=== PATIENT | female | born 1955 | race Caucasian/White ===

== ENCOUNTER 2018-02-12 21:13 | Emergency (ER) | payer BC ==
[2018-02-12 23:58] LABS: ABS Basophils 0.1 10^3/ul (0-0.2); ABS Eosinophils 0.1 10^3/ul (0-0.6); ABS Lymphocytes 2.3 10^3/ul (1.0-4.8); ABS Monocytes 0.6 10^3/ul (0-0.8); ABS Neutrophils 4.3 10^3/ul (1.5-7.7); ABS Nucleated RBC 0 10^3/ul; Eosinophil % 1.6 % (0-6); Hematocrit 39 % (35-47); Hemoglobin 13.3 g/dl (12.0-16.0); Mean Corpuscular HGB Conc 34 g/dl (31-36); Mean Corpuscular Hemoglobin 30 pg (27-31); Mean Corpuscular Volume 88 fL (80-97); Mean Platelet Volume 7.9 um3 (7.4-10.4); Nucleated Red Blood Cells % 0.1; Platelet Count 384 10^3/ul (150-450); Red Blood Count 4.36 10^6/ul (4.00-5.40); Red Cell Distribution Width 13 % (10.5-15); White Blood Count 7.5 10^3/ul (3.5-10.8)
[2018-02-13 00:19] LABS: EGFR Non-African American 83.4 (>60)
[2018-02-13] MEDS ORDERED: NS 0.9% 1000 ML* 1,000 ML IV ONE (01:38)
--- NOTE | 2018-02-13 01:42 | ED ---
Neck Pain - HPI Summary HPI Summary: This pt is a 62 y/o female presenting to [facility] c/o lump on her neck for the past 1.5 weeks. She states she noticed this lump about 1.5 weeks ago and went to Urgent Care. She was prescribed Augmentin on 02/06/18 and is still taking it. Pt did not get any imaging done. Pt reports her voice has been changing as well as an episode last night when she was coughing and felt restriction and SOB. She denies any pain on neck. Pt denies lump has changed in size since she noticed it. Denies fever, appetite change, difficulty swallowing. No PMHx. - History of Current Complaint Chief Complaint: EDNeckComplaint Stated Complaint: DIFFICULTY BREATHING Time Seen by Provider: 02/13/18 01:18 Hx Obtained From: Patient Onset/Duration Of Injury/Symptoms: Weeks - 1.5 Mechanism Of Injury: No Known Trauma Timing: Lasting Weeks - 1.5 Onset/Duration: Started weeks ago - 1.5 Severity Currently: Mild Pain Intensity: 1 Pain Scale Used: 0-10 Numeric Aggravating Factors: Nothing Alleviating Factors: Nothing Associated Signs & Symptoms: Negative: Swelling, Redness, Bruising, Fever, Nuchal Rigity, Weakness, Headache, Paresthesia - Allergies/Home Medications Allergies/Adverse Reactions: Allergies Allergy/AdvReac Type Severity Reaction Status Date / Time Sulfa (Sulfonamide AdvReac Headache Verified 02/12/18 21:22 Antibiotics) PMH/Surg Hx/FS Hx/Imm Hx Endocrine/Hematology History: Denies: Hx Diabetes Cardiovascular History: Denies: Hx Hypertension Infectious Disease History: No Infectious Disease History: Denies: Traveled Outside the [place] in Last 30 Days - Family History Family History: FHx thyroid issues - Social History Alcohol Use: None Substance Use Type: Reports: None Smoking Status (MU): Never Smoked Tobacco Review of Systems Negative: Fever, Chills, Other - appetite change ENT: Other - voice changing, neck lump Negative: Other - difficulty swallowing Positive: Shortness Of Breath, Cough Skin: Negative Neurological: Negative All Other Systems Reviewed And Are Negative: Yes Physical Exam - Summary Physical Exam Summary: VITAL SIGNS: Reviewed. GENERAL: Patient is a well-developed and nourished female who is lying comfortable in the stretcher. Patient is not in any acute respiratory distress. HEAD AND FACE: No signs of trauma. No ecchymosis, hematomas or skull depressions. No sinus tenderness. EYES: PERRLA, EOMI x 2, No injected conjunctiva, no nystagmus. EARS: Hearing grossly intact. Ear canals and tympanic membranes are within normal limits. MOUTH: Oropharynx within normal limits. NECK: Supple, trachea is midline, no adenopathy, no JVD, no carotid bruit, no c- spine tenderness, neck with full ROM. 3.5 x 2.5 cm firm mass over the right side of the neck mostly likely in her thyroid gland, which moved with swallowing. It is non tender and not warm. CHEST: Symmetric, no tenderness at palpation LUNGS: Clear to auscultation bilaterally. No wheezing or crackles. CVS: Regular rate and rhythm, S1 and S2 present, no murmurs or gallops appreciated. ABDOMEN: Soft, non-tender. No signs of distention. No rebound no guarding, and no masses palpated. Bowel sounds are normal. EXTREMITIES: FROM in all major joints, no edema, no cyanosis or clubbing. NEURO: Alert and oriented x 3. No acute neurological deficits. Speech is normal and follows commands. SKIN: Dry and warm Triage Information Reviewed: Yes Vital Signs On Initial Exam: Initial Vitals Temp Pulse Resp BP Pulse Ox 98.3 F 73 16 133/66 100 02/12/18 21:15 02/12/18 21:15 02/12/18 21:15 02/12/18 21:15 02/12/18 21:15 Vital Signs Reviewed: Yes Diagnostics - Vital Signs Vital Signs Temp Pulse Resp BP Pulse Ox 02/12/18 23:35 98.3 F 66 16 120/65 100 02/12/18 21:15 98.3 F 73 16 133/66 100 - Laboratory Lab Results: Lab Results 02/12/18 02/12/18 Range/Units 23:51 23:51 WBC 7.5 (3.5-10.8) 10^3/ul RBC 4.36 (4.00-5.40) 10^6/ul Hgb 13.3 (12.0-16.0) g/dl Hct 39 (35-47) % MCV 88 (80-97) fL MCH 30 (27-31) pg MCHC 34 (31-36) g/dl RDW 13 (10.5-15) % Plt Count 384 (150-450) 10^3/ul MPV 7.9 (7.4-10.4) um3 Neut % (Auto) 57.7 (38-83) % Lymph % (Auto) 31.0 (25-47) % [place] % (Auto) 8.5 H (0-7) % Eos % (Auto) 1.6 (0-6) % Baso % (Auto) 1.2 (0-2) % Absolute Neuts (auto) 4.3 (1.5-7.7) 10^3/ul Absolute Lymphs (auto) 2.3 (1.0-4.8) 10^3/ul Absolute Monos (auto) 0.6 (0-0.8) 10^3/ul Absolute Eos (auto) 0.1 (0-0.6) 10^3/ul Absolute Basos (auto) 0.1 (0-0.2) 10^3/ul Absolute Nucleated RBC 0 10^3/ul Nucleated RBC % 0.1 Sodium 140 (135-145) mmol/L Potassium 4.4 (3.5-5.0) mmol/L Chloride 102 (101-111) mmol/L Carbon Dioxide 32 (22-32) mmol/L Anion Gap 6 (2-11) mmol/L BUN 11 (6-24) mg/dL Creatinine 0.71 (0.51-0.95) mg/dL Est GFR ( Amer) 100.9 (>60) Est GFR (Non-Af Amer) 83.4 (>60) BUN/Creatinine Ratio 15.5 (8-20) Glucose 116 H (70-100) mg/dL Calcium 9.7 (8.6-10.3) mg/dL Total Bilirubin 0.60 (0.2-1.0) mg/dL AST 19 (13-39) U/L ALT 13 (7-52) U/L Alkaline Phosphatase 83 (34-104) U/L C-Reactive Protein 3.59 (<8.01) mg/L Total Protein 7.6 (6.4-8.9) g/dL Albumin 4.3 (3.2-5.2) g/dL Globulin 3.3 (2-4) g/dL Albumin/Globulin Ratio 1.3 (1-3) Result Diagrams: 02/12/18 23:51 02/12/18 23:51 Lab Statement: Any lab studies that have been ordered have been reviewed, and results considered in the medical decision making process. - CT Neck CT CT Interpretation: Positive (See Comments) - IMPRESSION: Right thyroid mass with partially calcified nodule causing deviation of the trachea to the left of midline. Small left thyroid lesions. Reversal of the normal lordotic curvature of the cervical spine may be positional in nature or due to muscle spasm. Clinical correlation is advised. Dr. Sams has reviewed this report. CT Interpretation Completed By: Radiologist Re-Evaluation - Re-Evaluation First Eval Re-Evaluation Time: 04:15 Comment: Reviewed the lab and CT results with the pt and . She will be discharged home with follow up from Dr. Herrera. Neck Course/Dx - Course Assessment/Plan: Pt is a 62 y/o female, currently on Augmentin for 7 days now, who presents with lump on her neck for the past 1.5 weeks. Pt reports her voice has been changing as well as an episode last night when she was coughing and felt restriction and SOB. She denies any pain on neck. Pt denies lump has changed in size since she noticed it. Test results show TSH of 7.78. Neck CT shows right thyroid mass with partially calcified nodule causing deviation of the trachea to the left of midline. Small left thyroid lesions. Reversal of the normal lordotic curvature of the cervical spine may be positional in nature or due to muscle spasm. I discussed the cat scan and blood work with the pt and . Pt will be given a referral to Dr. Herrera, surgeon. She is advised to stop her antibiotics. Pt is also instructed to return to the ED for any worsening or new symptoms. - Diagnoses Provider Diagnoses: Thyroid mass Discharge - Sign-Out/Discharge Documenting (check all that apply): Patient Departure - Discharge - Discharge Plan Condition: Stable Disposition: HOME Referrals: Justine Herrera MD [Medical Doctor] - Additional Instructions: Please follow up with Dr. Herrrea, surgeon, in 1-2 days. RETURN TO EMERGENCY DEPARTMENT FOR ANY NEW OR WORSENING SYMPTOMS. - Attestation Statements Document Initiated by Scribe: Yes Documenting Scribe: Justa Felix Provider For Whom Scribe is Documenting (Include Credential): Dr. Thierry Sams MD Scribe Attestation: Justa Lo, scribed for Dr. Thierry Sams MD on 02/13/18 at [id number].
[2018-02-13] MEDS ORDERED: Iohexol 300* (CONTRAST) 10 ML SDV IV ONE (01:46)
--- NOTE | 2018-02-13 03:35 | RAD ---
EXAM: CT Neck With Intravenous Contrast CLINICAL HISTORY: 62 years old, female; Signs and symptoms; Mass, lump, or swelling in neck TECHNIQUE: Axial computed tomography images of the neck with intravenous contrast. All CT scans at this facility use at least one of these dose optimization techniques: automated exposure control; mA and/or kV adjustment per patient size (includes targeted exams where dose is matched to clinical indication); or iterative reconstruction. Coronal and sagittal reformatted images were created and reviewed. CONTRAST: 50 mL of OMNI 300 administered intravenously. COMPARISON: No relevant prior studies available. FINDINGS: Oropharynx: Unremarkable. No significant tonsillar enlargement. No peritonsillar abscess. Hypopharynx: Unremarkable. Larynx: Unremarkable. Normal epiglottis. Trachea: There is deviation of the trachea to the left of midline by a right thyroid mass. Retropharyngeal space: Unremarkable. Submandibular/parotid glands: Unremarkable. Glands are normal in size. Thyroid: There is a heterogeneous, predominantly low density mass in the right lobe of the thyroid gland measuring approximately 3.4 x 3.7 x 4.4 cm. Partially calcified nodule is identified in the right lobe of thyroid gland measuring 1.2 cm. Small low density lesions are seen the left lobe of thyroid gland with the largest one measuring 3 mm. Bones/joints: There is reversal of the normal lordotic curvature. There is narrowing of the intervertebral disc space at C5-6. Soft tissues: Unremarkable. Vasculature: No acute findings. Lymph nodes: Unremarkable. No lymphadenopathy. Lung apices: Unremarkable as visualized. IMPRESSION: Right thyroid mass with partially calcified nodule causing deviation of the trachea to the left of midline. Small left thyroid lesions. Reversal of the normal lordotic curvature of the cervical spine may be positional in nature or due to muscle spasm. Clinical correlation is advised.
[2018-02-13 04:30] VITALS: BP 129/64
== END 2018-02-13 04:30 | disposition home or self-care (01) ==
LOC: ED 21:13
DX: E07.9 Disorder of thyroid, unspecified (principal); Z88.2 Allergy status to sulfonamides
CPT/HCPCS: 36415; 70491; 80053; 84436; 84439; 84443; 85025; 86140; 96360; 99283; Q9967

== ENCOUNTER 2018-09-02 19:37 | Day surgery (SDC) | payer BC ==
--- NOTE | 2018-09-02 19:59 | ED ---
Throat Pain/Nasal Congestion - HPI Summary HPI Summary: A 62 y/o F brought in by ambulance presents to ED for bleeding from her trachael tube onset approx 1914. No trauma to the area at onset of bleeding. Associated sx: dysphagia. Per EMS, the bleeding had subsided en route, but began actively bleeding while awaiting room placement. Pt put into room 14 in [facility]. Pt has CA, received radiation therapy, and during a surgery they had to place the trachael tube due to throat swelling. The tube was placed in May in [facility] in [facility]. She is scheduled to get feeding tube with Dr. Lord, surgery, next week. Per , pt is not on blood thinners. - History of Current Complaint Hx Obtained From: Family/Front Office Specialist, EMS Onset/Duration: Sudden Onset, Lasting Minutes, Still Present Associated Signs And Symptoms: Positive: Dysphagia Related History: Prior ENT Surgery - Allergies/Home Medications Allergies/Adverse Reactions: Allergies Allergy/AdvReac Type Severity Reaction Status Date / Time Sulfa (Sulfonamide AdvReac Headache Verified 09/02/18 20:04 Antibiotics) PMH/Surg Hx/FS Hx/Imm Hx Previously Healthy: No Endocrine/Hematology History: Reports: Hx Thyroid Disease - CANCER Denies: Hx Diabetes Cardiovascular History: Reports: Hx Hypertension - WAS LOW /NORMAL BUT STATES THE MEDS SHE IS CURRENTLY TAKING HAS RAISED IT S Respiratory History: Reports: Other Respiratory Problems/Disorders - 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 05/29/2018 TRACHEOSTOMY " '. 1979 rt ing. hernia repair. 2017 TUMOR OF UTERUS [place] Hx Anesthesia Reactions: No Infectious Disease History: Denies: Traveled Outside the [place] in Last 30 Days - Family History Family History: FHx thyroid issues - Social History Occupation: Retired Lives: With Family Alcohol Use: None Alcohol Amount: stopped February with diagnosis and surgery Hx Substance Use: No Substance Use Type: Reports: None Substance Use Comment - Amount & Last Used: occassional for anxiety Hx Tobacco Use: No Smoking Status (MU): Never Smoked Tobacco Have You Smoked in the Last Year: No Review of Systems Negative: Fever Positive: Other - pos: dysphagia; bleeding from trachael tube All Other Systems Reviewed And Are Negative: Yes Physical Exam - Summary Physical Exam Summary: Appearance: Pale, lying in bed comfortable Skin: Warm, dry, no obvious rash Eyes: sclera anicteric, no conjunctival pallor ENT: mucous membranes moist Neck: cuffless trachaeostomy with a fair amount of fresh blood; initially oozing from underneath trach plant; does not appear to be bleeding from tracheotomy lumen itself. Respiratory: No signs of respiratory distress Cardiovascular: Appears well perfused, pulses are nml Abdomen: deferred Musculoskeletal: Moving all 4 extremities without obvious discomfort Neurological: Awake and alert, mentation is normal, speech is fluent and appropriate Psychiatric: affect is normal, does not appear anxious or depressed Triage Information Reviewed: Yes Vital Signs Reviewed: Yes Diagnostics - Laboratory Result Diagrams: 09/02/18 22:47 09/02/18 22:47 Lab Statement: Any lab studies that have been ordered have been reviewed, and results considered in the medical decision making process. Re-Evaluation - Re-Evaluation 1 Re-Evaluation Time: 20:11 Change: Improved Comment: Bleeding has greatly slowed, possibly stopped. 2 Re-Evaluation Time: 20:16 3 Re-Evaluation Time: 20:33 Change: Worse Comment: Bleeding from traech. BP is 93/63. 4 Re-Evaluation Time: 20:44 5 Re-Evaluation Time: 20:47 6 Re-Evaluation Time: 20:56 Change: Unchanged EENT Course/Dx - Course Course Of Treatment: Pt is a 62 y/o F with CA presenting with atraumatic bleeding from her trachael tube onset 1914. Associated sx: dysphagia. Per EMS, the bleeding had subsided en route, but began actively bleeding in ED. The tube was placed in May. at [facility]. Per , pt is not on blood thinners. Consulted with Dr. Kay who recommended consult with ENT. Consulted with Dr. Poole who will see patient in ED. Upon seeing pt in ED, Dr Poole, will admit patient to surgery. - Diagnoses Provider Diagnoses: Hemorrhage from tracheostomy stoma - Provider Notifications Discussed Care Of Patient With: Tay Kay - surgery Time Discussed With Above Provider: 17:52 Instructed by Provider To: Other - Recommends contacting ENT on-call, Dr. Poole. - Critical Care Time Critical Care Time: 30-74 min Discharge - Sign-Out/Discharge Documenting (check all that apply): Patient Departure - ADMIT - OR Patient Received Moderate/Deep Sedation with Procedure: No - Discharge Plan Condition: Guarded Disposition: ADMITTED TO [facility] - Billing Disposition and Condition Condition: GUARDED Disposition: Admitted to [facility] - Attestation Statements Document Initiated by Scribe: Yes Documenting Scribe: Severiano Manrique Provider For Whom Scribe is Documenting (Include Credential): Dr. Shimon Zuleta MD Scribe Attestation: Severiano Lo scribed for Dr. Shimon Zuleta MD on 09/03/18 at 0543. Scribe Documentation Reviewed: Yes Provider Attestation: The documentation as recorded by the patoibe, Severiano Manrique accurately reflects the service I personally performed and the decisions made by , Dr. Shimon Zuleta MD Status of Scribe Document: Viewed Consult Consult: 2001: Consult with Dr. Poole, ENT Will see patient. 2100: Consult with Dr. Poole ENT Will admit to operating.
[2018-09-02] MEDS ORDERED: NS 0.9% 1000 ML** 1,000 ML IV ONE (20:34)
[2018-09-02] MEDS ORDERED: Tranexamic Acid 1,000 MG/10 ML SDV IV ONE (20:39)
[2018-09-02] MEDS ORDERED: LORazepam INJ* 2 MG/ML 1 ML VIAL IV PUSH ONE (20:46)
[2018-09-02] MEDS ORDERED: Lidocain 1% EPI 1:100,000 * 30 ML MDV ONE (21:00)
[2018-09-02] MEDS ORDERED: Tranexamic Acid 1,000 MG in NS 0.9% 50 ML IV ONE (21:00)
[2018-09-02 21:20] LABS: Albumin 3.1 g/dL (3.2-5.2); Albumin/Globulin Ratio 0.9 (1-3); BUN/Creatinine Ratio 23.5 (8-20); Calcium 8.7 mg/dL (8.6-10.3); EGFR African American 106.1 (>60); EGFR Non-African American 87.7 (>60); Globulin 3.5 g/dL (2-4); Potassium 3.8 mmol/L (3.5-5.0); Total Bilirubin 0.8 mg/dL (0.2-1.0); Total Protein 6.6 g/dL (6.4-8.9)
[2018-09-02 21:25] VITALS: BP 154/110
[2018-09-02] MEDS ORDERED: Rocuronium* 10 MG/ML VIAL ONE (21:25)
[2018-09-02] MEDS ORDERED: KETAMINE HCL* 50 MG/ML 10 ML VIAL ONE (21:25)
[2018-09-02] MEDS ORDERED: fentaNYL* 50 MCG/ML 2 ML VIAL (100 MCG VIAL) ONE (21:26)
[2018-09-02 21:31] LABS: Hematocrit 29 % (33-41); Hemoglobin 9.9 g/dL (12.0-16.0); Mean Corpuscular HGB Conc 34 g/dL (31-36); Mean Corpuscular Hemoglobin 31 pg (27-31); Mean Corpuscular Volume 91 fL (80-97); Mean Platelet Volume 8.1 fL (7.4-10.4); Platelet Count 388 10^3/uL (150-450); Red Blood Count 3.22 10^6 /uL (3.70-4.87); Red Cell Distribution Width 22 % (10.5-15); White Blood Count 23.8 10^3/uL (3.5-10.8)
[2018-09-02 21:56] LABS: ABS Basophils 0.1 10^3/ul (0-0.2); ABS Eosinophils 0 10^3/ul (0-0.6); ABS Lymphocytes 1.2 10^3/ul (1.0-4.8); ABS Monocytes 1.1 10^3/ul (0-0.8); ABS Neutrophils 21.4 10^3/ul (1.5-7.7); ABS Nucleated RBC 0 10^3/ul; Eosinophil % 0 %; Lymphocyte % 5.2 %; Nucleated Red Blood Cells % 0.1
[2018-09-02 21:58] LABS: Polychromasia 1+
[2018-09-02] MEDS ORDERED: Midazolam* 1 MG/ML 2 ML VIAL (2 MG) ONE (22:44)
[2018-09-02 23:03] LABS: BUN/Creatinine Ratio 24.6 (8-20); Calcium 6.7 mg/dL (8.6-10.3); EGFR African American 111.8 (>60); EGFR Non-African American 92.4 (>60); Potassium 4.9 mmol/L (3.5-5.0)
[2018-09-02 23:10] LABS: Hematocrit 16 % (33-41); Hemoglobin 5.3 g/dL (12.0-16.0); Mean Corpuscular HGB Conc 33 g/dL (31-36); Mean Corpuscular Hemoglobin 30 pg (27-31); Mean Corpuscular Volume 90 fL (80-97); Platelet Count 127 10^3/uL (150-450); Red Blood Count 1.77 10^6 /uL (3.70-4.87); Red Cell Distribution Width 16 % (10.5-15); White Blood Count 13.5 10^3/uL (3.5-10.8)
[2018-09-02 23:13] LABS: Activated Partial Thrombo Time 48.3 seconds (26.0-36.3)
[2018-09-02 23:17] LABS: INR 1.48 (0.77-1.02)
[2018-09-02 23:24] LABS: BUN/Creatinine Ratio 23.5 (8-20); EGFR African American 106.1 (>60); EGFR Non-African American 87.7 (>60); Potassium 3.9 mmol/L (3.5-5.0)
[2018-09-02 23:27] LABS: Calcium 5.9 mg/dL (8.6-10.3)
[2018-09-02] MEDS ORDERED: Calcium CHLORIDE 10% SYRINGE* 1 GM/10 ML ONE (23:29)
[2018-09-02 23:31] LABS: ABS Basophils 0 10^3/ul (0-0.2); ABS Eosinophils 0 10^3/ul (0-0.6); ABS Lymphocytes 0.3 10^3/ul (1.0-4.8); ABS Monocytes 0.8 10^3/ul (0-0.8); ABS Neutrophils 12.4 10^3/ul (1.5-7.7); ABS Nucleated RBC 0 10^3/ul; Eosinophil % 0 %; Nucleated Red Blood Cells % 0
[2018-09-03] MEDS ORDERED: Propofol* 100 ML ONE
--- NOTE | 2018-09-03 07:14 | OP ---
OPERATIVE REPORT: DATE OF OPERATION: 09/02/18 - [facility] DATE OF : 55 ATTENDING SURGEON: Taqueria Poole MD. PROCESS VALIDATION ENGINEER: Loki Spencer MD. ANESTHESIOLOGIST: Vikash Lawton MD ANESTHESIA: General. PRE-OP DIAGNOSIS: Tracheostomal hemorrhage. 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 OPERATIVE PROCEDURE: Control of tracheostomal hemorrhage and bronchoscopy. ESTIMATED BLOOD LOSS: Approximately 500 cc. FINDINGS: Brisk bleeding from the anterior tracheal wall just below the stomal entrance. 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 She had postoperative radiation and subsequently developed stenosis of the trachea and required tracheostomy, which was performed in May. All of these procedures were performed at [facility]. She is currently on chemotherapy and according to her , has no known recurrent disease in the neck, but does have left lung metastasis which was only able to be partially resected. She presented to our ED this evening by ambulance for brisk bleeding from around her tracheostoma. I was called and when I evaluated her at the bedside, she had a [address] There was no bleeding at that time, although shortly after my examination, the patient did develop brisk bleeding both from around and within the tracheostomy tube. We did change her trach and put in a 6 cuffed trach, which seemed to have a tamponading effect on the bleeding. The decision was made at that point to bring her up to the operating room to explore the area. DESCRIPTION OF PROCEDURE: She was brought to the operating room, general anesthesia was assured. The neck was quickly prepped with Betadine and the patient was draped. Dr. Spencer was called in from home to assist me. Dr. Kay from general surgery came in as well, although did not scrub. An A-line was placed. The patient had multiple IVs. Labs were sent. The area around the trach tube was gently freed of clot with forceps and suction. A bronch was attempted to be passed transnasally, but the larynx seemed to be extremely stenotic and would not allow for passage of the bronch. The hope was that we could potentially visualize the trachea proximal to the cuff of the tracheostomy tube. This was not possible. Once we removed the clot and started to explore the area, extremely brisk arterial bleeding began from the anterior tracheal wall. This precluded any meaningful visualization or ability to do any further bronchoscopy. The vessel was then determined to be beyond our capacity to dissect and control based on its location and concern that it was probably the innominate artery. A 7.0 reinforced ET tube was then placed. It was placed distal to the bleeding site to protect the airway and Ray-Krissy sponges were placed firmly into the tracheostoma with successful tamponading of the bleeding. The tube was adjusted so that its tip sat just above the piero. Positive breath sounds were obtained bilaterally. A bronchoscope was passed through the tube to confirm placement. Limited bronchoscopy was done to try to suction some of the blood and secretions out of the mainstem bronchi. The tube was sutured. The skin was also sutured in an attempt to hold the packing in place. At this point, we contacted [facility] and Dr. Chaudhari of thoracic surgery, who agreed to take the patient in transfer. Transfer was arranged by helicopter. [id number]/[facility] #: [id number] LAURYN
== END 2018-09-03 00:31 | disposition short-term general hospital (02) ==
LOC: ED 19:37 → OR 21:37
PROVIDERS: ATTEND Otolaryngology
DX: J95.01 Hemorrhage from tracheostomy stoma (principal); Z85.850 Personal history of malignant neoplasm of thyroid; C78.00 Secondary malignant neoplasm of unspecified lung; D62 Acute posthemorrhagic anemia; R13.10 Dysphagia, unspecified; R00.0 Tachycardia, unspecified; Y83.8 Other surgical procedures as the cause of abnormal reaction of the patient, or of later complication, without mention of misadventure at the time of the procedure; Y92.9 Unspecified place or not applicable
CPT/HCPCS: 36415; 80048; 80053; 82803; 83605; 85025; 85610; 85730; 86850; 86900; 86901; 86922; 99285; J2060; J2250; J2704; J3010; P9040